=== PATIENT | female | born 1995 | race Caucasian/White ===

== ENCOUNTER → 2024-03-05 09:25 | Outpatient (REF) | payer BC, SELFPAY | LOC: UCDH 09:25 | PROVIDERS: ATTENDING PHYSICIAN Physician Assistant Medical; FAMILY PHYSICIAN Physician Assistant Medical | DX: S99.922A Unspecified injury of left foot, initial encounter (principal) | CPT/HCPCS: 73630 ==

== ENCOUNTER 2024-04-08 21:37 | Inpatient (IN) | payer BC, SELFPAY ==
[2024-04-08 18:19] VITALS: BP 146/86
[2024-04-08 18:30] LABS: Glucose - Point of Care 268 mg/dl (70-99)
--- NOTE | 2024-04-08 18:39 | ED.GENMED ---
History of Present Illness
General
Chief Complaint: Abdominal Symptoms
Source: patient
Time Seen by Provider: 04/08/24 18:31
History of Present Illness
History of Present Illness:
28yoF with a history of type 1 diabetes with insulin pump in place and hypothyroidism presenting with her for evaluation of vomiting. Symptoms began around 2am this morning. She reports vomiting every 20 minutes since then. She has been
unable to tolerate PO intake since her symptoms began. She also reports diarrhea. Several of her coworkers are currently sick with a GI illness. Her urine ketones were high and she started to have heavy breathing this evening which prompted her to
come to the ED for concern for possible DKA. Glucose has been in the 250s today.
Phy Exam
General Physical Exam
General Presentation: mild distress
General age: appears stated age
General Skin: warm and dry
General Habitus: normal
ENT Exam
ENT Exam: normocephalic
Cardiovascular Exam
Cardiovascular Exam: no murmur and tachycardia
Pulmonary Exam
Pulmonary Exam: lungs clear, no respiratory distress, no rales, no crackles and no rhonchi
Gastrointestinal Exam
Gastrointestinal Exam: non tender, soft and non distended
Neurological Exam
Neurological Exam: alert
Toro Coma Scale
Eye Opening: Spontaneous
Verbal Response: Oriented
Motor Response: Obeys Commands
GCS Total Score: 15
Skin Exam
Skin Exam: normal color and warm/dry
Psychiatric Exam
Psychiatric Exam: normal mood/affect
Course
Orders/Labs/Results
Orders:
Orders
04/08/24 18:25
Test Result ONCE
04/08/24 18:34
Ondansetron Injectable [Zofran] 4 mg .ROUTE .STK-MED ONE
04/08/24 18:38
Electrocardiogram (*1) Urgent
Reason for Study: Shortness of Breath
EKG- Treatment ONCE
0.9% Sodium Chloride 1000 ml [Nss] 1,000 ml IV BOLUS
Ondansetron Injectable [Zofran] 4 mg IV NOW STA
04/08/24 18:50
B-Hydroxybutyrate Urgent
Basic Metabolic Panel Urgent
Comment: BMP NO K
Complete Blood Count/With Diff Urgent
HCG, Serum Qualitative Screen Urgent
Lipase Urgent
Venous Blood Gas Urgent
%Oxygen/Room Air: room air
04/08/24 19:25
0.9% Sodium Chloride 1000 ml [Nss] 1,000 ml IV BOLUS
04/08/24 20:01
Dphrq-Lkbf-Gftgnjr Urgent
Magnesium Urgent
Potassium Urgent
04/08/24 20:41
Bedside Glucose- Treatment Q1H
IV Insert/Care/Rem.- Treatment PRN
Magnesium Sulfate 2 Gram/50 ml [Magnesium Sulfate] 2 gram in 50 ml IV NOW
Reg Insulin 100 Units/100 ml [Novolin R Insulin Infusion] 100 units in 100 ml IV NOW
04/08/24 20:42
Ondansetron Injectable [Zofran] 4 mg .ROUTE .STK-MED ONE
04/08/24 20:45
Basic Metabolic Panel Q2H
04/08/24 20:48
Ondansetron Injectable [Zofran] 4 mg IV NOW STA
04/08/24 20:51
Urinalysis Reflex To Culture Urgent
Date Specimen was Collected: 04/08/24
Time Specimen was Collected: 20:36
04/08/24 21:00
KCl 20 Meq/0.9%Sodchl 1000 ml [NSS with KCL 20 MEQ] 20 meq in 1,000 ml IV 250 mls/hr
04/08/24 21:03
Admit/Transfer Patient As Directed
Co-Sign Provider:
Level of Care: Inpatient admission
Assign to:: ICU
Physician / Group: lyly ordaz
Diagnosis: DKA
Reason for Hospitalization: DKA
Expected length of stay greater than two midnights?: Yes
ELOS- Estimated Length of Stay in days: 3
I certify the patient meets the requirements for IP care: Yes
PRN Pain Medication Management As Directed
May give lesser potent ordered pain med per pt: Yes
preference::
Protocol:: Medication orders for pain may be administered in a
manner that supports deferring to patient preference
when the pt is:
- Requesting an ordered lesser potent pain medication.
Least to most potent pain medications are defined
as: acetaminophen < NSAID < tramadol < opioids
(morphine, oxycodone, hydromorphone).
- Requesting a lesser dose of the same medication IF
ORDERED.
- Requesting a less intrusive route of administration
if both routes are prescribed by the provider (PO <
IV).
04/08/24 21:04
Code Status As Directed
Resuscitation Status: Full Code
04/08/24 22:45
Basic Metabolic Panel Q2H
04/09/24 00:45
Basic Metabolic Panel Q2H
Abnormal Lab Results
04/08/24 04/08/24 04/08/24
18:28 18:50 20:01
MPV 11.8 H fL
(7.4-10.4)
Absolute Lymphs (auto) 0.2 L 10^3/uL
(1.2-3.4)
Neutrophils % 92.0 H %
(42.2-75.2)
Lymphocytes % 4.1 L %
(20.5-51.1)
VBG pCO2 28 L mmHg
(35-48)
VBG pO2 120 H mmHg
(30-50)
VBG HCO3 17.7 L mmol/L
(22-27)
Sodium 131 L mmol/L
(135-145)
Carbon Dioxide 16 L mmol/L
(22-30)
Glucose 297 H mg/dl
(70-99)
Magnesium 1.5 L mg/dl
(1.6-2.3)
Urine Ketones
Urine Glucose
B-Hydroxybutyrate 3.12 H mmol/L
(0.02-0.27)
POC Glucose 268 H mg/dl
(70-99)
04/08/24
20:51
MPV
Absolute Lymphs (auto)
Neutrophils %
Lymphocytes %
VBG pCO2
VBG pO2
VBG HCO3
Sodium
Carbon Dioxide
Glucose
Magnesium
Urine Ketones 3+ A
(Negative)
Urine Glucose 3+ A
(Negative)
B-Hydroxybutyrate
POC Glucose
04/08/24 18:50
Vital Signs
Initial and Last Documented VS:
Initial Vital Signs
Temp Pulse Resp BP Pulse Ox
98.1 F 122 18 146/86 98
04/08/24 18:19 04/08/24 18:19 04/08/24 18:19 04/08/24 18:19 04/08/24 18:19
Last Documented Vital Signs
Temp Pulse Resp BP Pulse Ox
98.1 F 122 18 146/86 98
04/08/24 18:19 04/08/24 18:19 04/08/24 18:19 04/08/24 18:19 04/08/24 18:19
MDM/Problems Addressed
Differential Diagnosis Includes:
28yoF here with vomiting since 2am. Unable to tolerate PO intake. Hx of T1DM. Urine ketones high at home. She is tachycardic to 122. Remainder of vitals stable. She is in mild distress on exam. Differential diagnosis includes but is not limited to:
DKA, HHS, dehydration, BEN, electrolyte abnormality, gastroenteritis
Initial ED plan: Check abdominal labs, magnesium, beta hydroxybutyrate, VBG, HCG, UA, and EKG. IV Zofran and fluid bolus for symptoms.
Acute Exacerbation and/or Progression of Chronic Illness: DM
*EKG
Interpreted by ED Provider?: Yes
EKG Intrepretation Date: 04/08/24
Heart Rate: 91
Rate: normal
Rhythm: sinus
Waldo: normal axis
Interval: normal interval
QRS Pattern: normal QRS
Ischemia: no ischemia
*Critical Care Note
Total Time (30-74mins, 75-104mins- exclusive of procedures): 35
Update Note
Update Note:
Glucose 297. Bicarb 16, venous pH normal. Serum and urine ketones positive. Magnesium 1.5, remainder of electrolytes normal. 2nd L of NS ordered. Insulin gtt ordered per DKA protocol. She was admitted for further evaluation and management.
ED Attending Note
-
Portions of this chart may have been created with voice recognition software.� Occasional wrong word or��sound alike� substitutions may have occurred due to the inherent limitations of voice recognition software.
Discharge Plan
Departure
Patient Disposition: Admit
Date of Disposition: 04/08/24
Time of Disposition: 20:44
Presentation/result/management discussed w/ accepting MD/DO: Hospitalist
Discharge Problem:
DKA (diabetic ketoacidosis)
Prescriptions:
No Action
levothyroxine [Synthroid] 125 mcg Tablet
125 mcg PO DAILY
(DME) insulin pump cart,10 units/day
Referrals:
Nanci Danielle PA [Family Provider] -
Interventions
Interventions:
*Risk Screen - Suicide Last Done: 04/08/24 18:19
*General Assessment Last Done: 04/08/24 18:19
*Neglect/Abuse Screening Last Done: 04/08/24 18:19
*ED COVID-19 Vaccine History Last Done: 04/08/24 18:59
NH-Ygpxip-Qiiitsvdkt Assessment Last Done: 04/08/24 18:59
Discharge Date and Time
Print Language: MOHAWK
[2024-04-08] MEDS: NSS 1000 IV ×2 (18:53→20:47)
[2024-04-08] MEDS: ZOFRAN 4 MG IV ×2 (18:54→20:48)
[2024-04-08 18:56] LABS: % Basophils 0.5 % (0-2); % Immature Granulocytes 0.2 % (0-0.5); % Lymphocytes 4.1 % (20.5-51.1); % Monocytes 3.2 % (1.7-9.3); Absolute Lymphocytes 0.2 10^3/uL (1.2-3.4); Absolute Monocytes 0.2 10^3/uL (0.1-0.6); Absolute Neutrophils 5.1 10^3/uL (1.4-6.5); Hematocrit 44.1 % (37.0-47.0); Hemoglobin 14.7 g/dL (12.0-16.0); Mean Corp Hgb Conc. 33.3 g/dL (33.0-37.0); Mean Corpuscular Hgb 28.8 pg (27.0-31.0); Mean Corpuscular Volume 86.3 fL (81.0-99.0); Mean Platelet Volume 11.8 fL (7.4-10.4); Nucleated Red Blood Cells % 0 %; Platelet Count 186 10^3/uL (130-400); Red Blood Cell Count 5.11 10^6/uL (4.20-5.40); Red Cell Dist. Width 12.2 % (11.5-14.5); Venous Blood Gas B.E. -5.3 mmol/L (-4 to +4); Venous Blood Gas HCO3 17.7 mmol/L (22-27); Venous Blood Gas O2 Sat % 99.9 %; Venous Blood Gas pCO2 28 mmHg (35-48); Venous Blood Gas pH 7.41 (7.32-7.43); Venous Blood Gas pO2 120 mmHg (30-50); White Blood Cell Count 5.6 10^3/uL (4.8-10.8)
[2024-04-08 18:58] VITALS: BP 119/63; BMI 29.1
[2024-04-08 19:14] LABS: HCG, Serum Qualitative Screen Negative
[2024-04-08 19:21] LABS: Blood Urea Nitrogen 13 mg/dl (7-17); Calcium 9.2 mg/dl (8.4-10.2); Carbon Dioxide 16 mmol/L (22-30); Chloride 99 mmol/L (98-107); Estimated Creatinine Clearance > 125 ml/min; Glucose 297 mg/dl (70-99); Lipase 27 U/L (23-300); Sodium 131 mmol/L (135-145); eGFR > 60.00
[2024-04-08 19:32] LABS: B-Hydroxybutyrate 3.12 mmol/L (0.02-0.27)
[2024-04-08 20:00] VITALS: BP 118/68
[2024-04-08 20:37] LABS: ALT (SGPT) 22 U/L (0-35); AST (SGOT) 22 U/L (14-36); Albumin 4.1 g/dl (3.5-5.0); Alkaline Phosphatase 60 U/L (38-126); Direct Bilirubin 0.2 mg/dl (0.0-0.4); Magnesium 1.5 mg/dl (1.6-2.3); Potassium 4.5 mmol/L (3.5-5.1); Total Bilirubin 0.8 mg/dl (0.2-1.3); Total Protein 6.3 g/dl (6.3-8.2)
--- NOTE | 2024-04-08 20:51 | HPS.HSE ---
Family Physician
-
Family Physician: Nanci Danielle
Chief Complaint
-
nausea and vomiting
History of Present Illness
28yoF with a history of type 1 diabetes with insulin pump in place and hypothyroidism presenting with her for evaluation of vomiting. Symptoms began around 2am this morning. She reports vomiting every 20 minutes since then. She has been
unable to tolerate PO intake since her symptoms began. She also reports diarrhea. Several of her coworkers are currently sick with a GI illness. Her urine ketones were high and she started to have heavy breathing this evening which prompted her to
come to the ED for concern for possible DKA. Glucose has been in the 300's. she did not give her insulin at home, she was afraid that she will drop her glucose as she was not eating. denied fever, chills, chest pain, sob. denied CONTRERAS, dizzy or
syncope. denied abdominal pain. denied dysuria or hematuria.
noted in DKA. initiated on insulin drip and normal saline. admitting for further management.
Medical History
Past Medical History
Past Medical History: Reports Other
Additional Past Medical History:
Type 1 diabetes
Past Surgical History: Reports Other
Additional Past Surgical History:
[place] tooth extraction
Social History
Tobacco: Non-smoker
Alcohol: Occasional
Drug: Marijuana
Personal:
Living: With Family
Family History
Family History: Not pertinent
Allergies / Home Medications
Allergies reflects when Allergies were last updated in [employer].
Home Medications with original date entered in [employer]
Allergy/Medication List:
Allergies
Allergy/AdvReac Type Severity Reaction Status Date / Time
clindamycin Allergy Hives Verified 04/08/24 18:24
Penicillins Allergy Hives Verified 04/08/24 18:24
Review of Systems
-
Constitutional: Reports No Symptoms
EENT: Reports No Symptoms
Respiratory: Reports No Symptoms
Cardiac: Reports No Symptoms
Abdomen/GI: Reports Nausea and Vomiting
: Reports No Symptoms
Musculoskeletal: Reports No Symptoms
Skin: Reports No Symptoms
Neurological: Reports No Symptoms
Endocrine: Reports No Symptoms
Hematologic/Lymphatic: Reports No Symptoms
Psych: Reports No Symptoms
Physical Exam
Vital Signs
Vital Signs
Temp Pulse Resp BP Pulse Ox
98.1 F 122 18 146/86 98
04/08/24 18:19 04/08/24 18:19 04/08/24 18:19 04/08/24 18:19 04/08/24 18:19
Physical Exam
General: Well Developed, Well Nourished and No Apparent Distress
HEENT: NormoCephalic, Moist mucous membranes and Atraumatic
Respiratory: Clear
Cardiac: S1/S2 and Regular Rhythm; No Murmur or Rub
GI: Soft, Non Tender, Non Distended and Normal Bowel Sounds; No Organomegaly
Rectal: Deferred by Provider
Musculoskeletal: No Clubbing, No Cyanosis and No Edema
Skin: No Rash
Neuro: AO x 3 and Nonfocal/grossly intact
Psych: Calm
Laboratory Results
-
04/08/24 18:50
Laboratory Results
Total Bilirubin 0.8 mg/dl (0.2-1.3) 04/08/24 20:01
AST 22 U/L (14-36) 04/08/24 20:01
ALT 22 U/L (0-35) 04/08/24 20:01
Alkaline Phosphatase 60 U/L (38-126) 04/08/24 20:01
Lipase 27 U/L (23-300) 04/08/24 18:50
Data Reviewed
-
Lab Data: Labs Reviewed by me
Impression/Plan
-
# DKA
# History of type 1 diabetes
-Insulin drip continued
-Normal saline continued
-Accu-Chek and BMP every 2 hours
-diabetic TACO MAKER consulted.
#hypothyroidism
-Synthroid continued
#DVT prophylaxis
-scd
#CODE status
-full code
[2024-04-08 20:59] LABS: Urine Albumin Trace (Neg - Trace); Urine Bilirubin Negative (Negative); Urine Character Clear (Clear); Urine Color Yellow; Urine Glucose 3+ (Negative); Urine Ketone 3+ (Negative); Urine Leukocyte Negative (Negative); Urine Nitrite Negative (Negative); Urine Occult Blood Negative (Negative); Urine Specific Gravity 1.025 (<1.030); Urine Urobilinogen Negative (Neg - 1+)
--- NOTE | 2024-04-08 21:10 | W.PN.UPDATE ---
Update Note
Progress Note Update
This note serves as an addendum to the H&P by knife sharpener BRITTANY Nubia OLEA
HPI
28F HX T1DM on insulin pump, hypothyroidism seen at ER;
- pw for for evaluation of vomiting began around 2am this morning
- vomiting every 20 minutes since then
- unable to tolerate PO intake since her symptoms began.plus diarrhea.
- Several of her coworkers are currently sick with a GI illness.
- have heavy breathing this evening which prompted her to come to the ED for concern for possible DKA.
-BGs 250s today.
PHX; see above
Vital Signs
Temp Pulse Resp BP Pulse Ox
98.1 F 122 18 146/86 98
04/08/24 18:19 04/08/24 18:19 04/08/24 18:19 04/08/24 18:19 04/08/24 18:19
PE
Gen: not toxic looking
HEENT: anicteric
Neck: supple
Lungs: CTA
Cor: RRR S1 S2
Abdomen: soft benign abdomen
CLINICAL REVIEW NURSE: AAO3, NFND
MS: no edema
Psych: appropriate
Data
Unremarkable CBC
Na 131
K 4.5
CO2 16
eGFR > 60
BHB 3.1
Hi AG MA@ 16
BG 297
EKG
NORMAL SINUS RHYTHM
NORMAL ECG
NO PREVIOUS ECGS AVAILABLE
ASSESSMENT & PLAN
DKA
Metabolic acidosis ( Hi AG MA due to DKA + NAG MA due to diarrheal loss )
Significant POS BHB
Hyperglycemia
Contracted volume
- HX DKA
- q2h BMP
- Insulin gtt and IVF resuscitation per DKA protocol
- Hold insulin pump
- IV Zofran PRN
- ADAT
- DM BLOWING ENGINEER consult for insulin management
Acute N/V/D precipitated by GI virus plus element of DKA
POS sick contact exposure to GI virus at work
- check Noro virus
- IVF
HX Hypothyroid
- cont. LT4
DVT Px: SCD
Full code
ICU
Total Critical Care Time__50___ minutes.
I was immediately available to the patient and staff. I personally examined, reviewed labs, diagnostic images/reports, interpretations, treatment plans, discussed patient care with other providers and family or caregivers (if patient is unable to
make decisions), entered orders as appropriate and documented the medical record.
[2024-04-08] MEDS: NSS with KCL 20 MEQ 1000 IV (21:25)
[2024-04-08] MEDS: NOVOLIN R INSULIN INFUSION 100 IV (21:29)
[2024-04-08 21:32] LABS: Glucose - Point of Care 231 mg/dl (70-99)
[2024-04-08] MEDS: MAGNESIUM SULFATE 50 IV (21:38)
[2024-04-08 22:10] VITALS: BP 124/64
[2024-04-08 22:13] LABS: Glucose - Point of Care 195 mg/dl (70-99)
[2024-04-08 22:27] VITALS: BP 104/58
[2024-04-08 23:00] VITALS: BP 107/70
--- NOTE | 2024-04-08 23:00 | PTCARENOTE ---
pt to ICU from ER, aaox3, pleasant, SR HR 90s, RA Sat 98%, B/L IV WNL- insulin gtt/IVF infusing as documented. POC discussed w/pt.
[2024-04-08 23:06] LABS: Glucose - Point of Care 146 mg/dl (70-99)
[2024-04-08] MEDS: D5/0.45%NSS with KCL 20 MEQ 1000 IV (23:28)
[2024-04-09] VITALS (13 sets, daily range): BP systolic 92–132; BP diastolic 33–68; BMI 27.7
[2024-04-09 00:03] LABS: Blood Urea Nitrogen 12 mg/dl (7-17); Calcium 8.1 mg/dl (8.4-10.2); Carbon Dioxide 21 mmol/L (22-30); Chloride 104 mmol/L (98-107); Estimated Creatinine Clearance > 125 ml/min; Glucose 158 mg/dl (70-99); Potassium 4.1 mmol/L (3.5-5.1); Sodium 132 mmol/L (135-145); eGFR > 60.00
[2024-04-09 00:17] LABS: Glucose - Point of Care 178 mg/dl (70-99)
[2024-04-09 01:19] LABS: Glucose - Point of Care 196 mg/dl (70-99)
[2024-04-09 02:28] LABS: Glucose - Point of Care 204 mg/dl (70-99)
[2024-04-09 03:36] LABS: Glucose - Point of Care 241 mg/dl (70-99)
[2024-04-09 04:26] LABS: Glucose - Point of Care 209 mg/dl (70-99)
--- NOTE | 2024-04-09 04:30 | PTCARENOTE ---
Reassessed, pt reports feeling much better, assisted to bathroom; no NVD noted since arrival to ICU. no further changes.
[2024-04-09 04:42] LABS: INR 1.16; PT 15.1 Sec (11.4-14.6)
[2024-04-09 04:43] LABS: APTT 29.8 Sec (23.4-35.0)
[2024-04-09 05:09] LABS: Blood Urea Nitrogen 9 mg/dl (7-17); Calcium 8.1 mg/dl (8.4-10.2); Carbon Dioxide 21 mmol/L (22-30); Chloride 104 mmol/L (98-107); Estimated Creatinine Clearance > 125 ml/min; Glucose 224 mg/dl (70-99); Potassium 4.3 mmol/L (3.5-5.1); Sodium 133 mmol/L (135-145); eGFR > 60.00
[2024-04-09 05:26] LABS: Glucose - Point of Care 194 mg/dl (70-99)
[2024-04-09] MEDS: D5/0.45%NSS with KCL 20 MEQ 1000 IV (06:09)
[2024-04-09 06:24] LABS: Glucose - Point of Care 210 mg/dl (70-99)
--- NOTE | 2024-04-09 07:10 | PTCARENOTE ---
Received pt with Insulin drip and IVF. She is awake and alert. Has a great understanding of her diabetes and management. Lungs CTA, +BSx4. Tolerating small sips of water. Ambulating in the room. at the bedside. Informed her of the plan of
care regarding advancing her diet, and transitioning her off of her insulin drip. She verbalized her understanding. Safe environment maintained. Supportive care given.
[2024-04-09 07:21] LABS: Glucose - Point of Care 237 mg/dl (70-99)
[2024-04-09 07:53] LABS: Magnesium 2.1 mg/dl (1.6-2.3)
[2024-04-09 08:20] LABS: Glucose - Point of Care 212 mg/dl (70-99)
[2024-04-09 09:23] LABS: Glucose - Point of Care 164 mg/dl (70-99)
[2024-04-09 09:30] LABS: Blood Urea Nitrogen 8 mg/dl (7-17); Carbon Dioxide 23 mmol/L (22-30); Chloride 104 mmol/L (98-107); Estimated Creatinine Clearance > 125 ml/min; Glucose 220 mg/dl (70-99); Potassium 4.4 mmol/L (3.5-5.1); Sodium 133 mmol/L (135-145); eGFR > 60.00
--- NOTE | 2024-04-09 10:07 | PTCARENOTE ---
Discussed the plan of care with Dr. Meléndez and Dr. Gonzalez.
[2024-04-09 10:19] LABS: Glucose - Point of Care 144 mg/dl (70-99)
--- NOTE | 2024-04-09 10:41 | CM ---
CM following re: discharge planning.
Discussed in Rounds, reviewed pt's chart, met with pt and pt's at bedside.
Pt is a 28 year old female, admitted with primary dx of DKA.
Pt reports she lives with in a 2SH, 1 step to enter, has no children, has insulin pump. Pt described herself as independent in all areas [employer], drives, works.
According to pt probably will be discharge home today. Pt is aware and stated he will transport his spouse home.
PCP: Nanci Danielle
Pharmacy: [facility]
D/C plan: home no needs. to transport
[2024-04-09 11:19] LABS: Glucose - Point of Care 167 mg/dl (70-99)
--- NOTE | 2024-04-09 11:29 | PTCARENOTE ---
Pt instructed to restart insulin pump. IVF and insulin gtt off. Pt ordering diet and instructed to notify RN when meal arrives for preprandial BG.
--- NOTE | 2024-04-09 11:34 | CON.INTV ---
Consultation
Consultation Request
Date/Time Consultation Requested: 04/09/2024
Date/Time Consultation Performed: 04/09/2024
Requesting Provider: Dr. Meléndez
Performing Provider: Dr. Sherman Kim
Reason for Consultation: Diabetes ketoacidosis
Medical History
-
History of Present Illness:
28-year-old with history of type 1 diabetes on insulin pump, hypothyroidism who presented to the emergency room complaining of vomiting. 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 Multiple episode of vomiting, unable to tolerate orals. Also reports
watery diarrhea. She has sick contacts at work multiple workers with GI illness.
Laboratory testing consistent with diabetes ketoacidosis, metabolic acidosis, possible ketones.
Patient has an insulin pump.
This morning improved, anion gap has closed.
No further vomiting.
Diarrhea has lessened.
Denies abdominal pain.
Past Medical History
Past Medical History: Other (As in HPI)
Social History
Tobacco: Non-smoker
Alcohol: Occasional
Drug: Marijuana
Personal:
Living: With Family
Family History
Family History: Reviewed & Not Pertinent
Allergies / Home Medications
Allergies
Allergy/AdvReac Type Severity Reaction Status Date / Time
clindamycin Allergy Hives Verified 04/08/24 18:24
Penicillins Allergy Hives Verified 04/08/24 18:24
Home Medications
�Medication �Instructions �Recorded �Confirmed �Last Taken �Type
insulin pump cart,10 units/day 04/08/24 04/08/24 Unknown History
levothyroxine 125 mcg tablet 125 mcg PO DAILY Thyroid 04/08/24 04/08/24 Unknown History
(Synthroid)
Review of Systems
-
History Source: Patient
All other systems: Negative unless noted
Vitals / Labs / Diagnostic Testing
Vital Signs
Temp Pulse Resp BP Pulse Ox
98.4 F 91 18 118/68 98
04/09/24 07:10 04/09/24 10:00 04/09/24 10:00 04/09/24 10:00 04/09/24 10:00
Lab Data
04/08/24 18:50
Laboratory Results
04/09/24
04:14
PT 15.1 H
INR 1.16
APTT 29.8
Diagnostic Testing:
Physical Exam
-
HEENT: Normocephalic
Cardiovascular: S1/S2
Respiratory: Non-Labored Respirations
GI: Soft and Non Distended
Neurology: Awake, Alert, Oriented and No Motor Deficits
Skin: Warm
General: Comfortable
Assessment
-
Diabetes ketoacidosis-triggered by viral gastroenteritis
Conditions present prior admission:
Hypothyroidism
Type 1 diabetes on an insulin pump
Assessment and plan:
Diabetes ketoacidosis likely triggered by viral gastroenteritis.
Abdominal exam is benign
No further vomiting
Tolerating liquids.
-
Overnight remained on insulin drip, this morning clinically improved.
Anion gap has closed
No further vomiting.
Electrolytes mostly balanced
Discontinue IV fluids
Advance diet
-
Discussed with diabetes nurse practitioner, insulin pump will be restarted
Diabetic diet-
If able to tolerate hopefully discharge planning later today.
-
Discussed with primary team.
No additional critical care needs.
If patient not discharged downgrade to medical surgery
Sign off
[2024-04-09] MEDS: PT'S OWN INSULIN PUMP - NovoLOG 1.5 UNIT SC (11:50)
[2024-04-09 12:02] LABS: Glucose - Point of Care 189 mg/dl (70-99)
--- NOTE | 2024-04-09 12:56 | PN.DE.MGMTRT ---
Insulin Management
- -
04/09/2024 Diabetes Management Consult
Patient admitted 04/08 with vomiting. PMH type 1 diabetes since 2006 on an insulin pump, hypothyroidism. A1C on admission 12, cr .5, eGFR >60. GAP on admission 16, now closed, 8 times 2.
Currently on insulin infusion @ 1.5 to 3 units per hour. Will transition back to insulin pump, then insulin infusion off one hour later. Patient may then order lunch and bolus per pump.
Patient is awake alert and oriented able to discuss diabetes management, at bedside. I did discuss with patient importance of changing infusion set if glucose is elevated and correction bolus does not reduce glucose within 1 hour. She was
not aware of this.Patient sees Dr. Mendiola, endocrine for ongoing diabetes care.
Currently using [employer]end[employer] 780 G insulin pump wit 6mm or 9mm Quick Sets with Novolog insulin. Pump settings as follows:
Basal I:CHO ratio Correction
12am .8 10 80
3am .8 10 80
6am 1.05 10 80
24 hour basal insulin 23.7 units.
Target range 130 to 140 (fear of hypoglycemia)
Active insulin 3 hours.
Patient has obtained new supplies and inserted infusion set without difficulty. Insulin infusion off in 1 hour and patient may order lunch. If no further vomiting patient may be discharged from diabetes perspective.
Diabetes History
- -
Type of Diabetes: 1
Pre-Admission Diabetes Regimen
04/08/24 04/08/24 04/08/24
18:50 20:45 22:45
Creatinine 0.6 Cancelled Cancelled
04/08/24 04/08/24 04/09/24
22:50 23:30 02:02
Creatinine Cancelled 0.6 Cancelled
04/09/24 04/09/24
04:14 08:08
Creatinine 0.5 L 0.5 L
Lab Results
Hemoglobin A1c 12.0 % (4.0-5.6) H 04/09/24 04:14
Insulin Pump Settings
IP Diabetes Regimen
04/08/24 04/08/24 04/08/24
18:28 18:50 20:45
Glucose 297 H Cancelled
POC Glucose 268 H
04/08/24 04/08/24 04/08/24
21:30 22:11 22:45
Glucose Cancelled
POC Glucose 231 H 195 H
04/08/24 04/08/24 04/08/24
22:50 22:54 23:30
Glucose Cancelled 158 H
POC Glucose 146 H
04/09/24 04/09/24 04/09/24
00:06 01:08 02:02
Glucose Cancelled
POC Glucose 178 H 196 H
04/09/24 04/09/24 04/09/24
02:17 03:24 04:14
Glucose 224 H
POC Glucose 204 H 241 H
04/09/24 04/09/24 04/09/24
04:15 05:15 06:12
Glucose
POC Glucose 209 H 194 H 210 H
04/09/24 04/09/24 04/09/24
07:09 08:08 08:09
Glucose 220 H
POC Glucose 237 H 212 H
04/09/24 04/09/24 04/09/24
09:10 10:07 11:03
Glucose
POC Glucose 164 H 144 H 167 H
04/09/24
11:49
Glucose
POC Glucose 189 H
Patient Education
--- NOTE | 2024-04-09 13:08 | W.PN.HOSP.TC ---
Addendum entered and electronically signed by Bello Meléndez MD 04/09/24 13:51:
Seen and examined by me independently in collaboration with the medical delivery driver.
Lab data and imaging data reviewed.
Addendum as below :
Patient with type 1 diabetes mellitus on insulin pump and CGM presents with acute GI symptoms predominantly of nausea,multiple episodes of emesis and also some diarrhea.
Noted to be in DKA predominantly due to increased anion gap and accumulation of ketoacidosis. pH is okay. Not significant and metabolic acidosis presumably because of concurrent metabolic alkalosis from upper GI losses in the form of vomiting.
Patient was put on IV insulin with improvement of blood sugars, closure of anion gap. Also her GI symptoms are much improved.
According to the history there seems to be a GI illness outbreak at work and there apparently cases of norovirus at work. Currently she has much improved GI symptoms and no diarrhea.
With resolution of DKA and improvement of GI symptoms we will switch her back to her subcutaneous insulin pump. if she tolerates a diet and blood sugars remain uncontrolled we will discharge her back home.
Went over the poor glycemic control at home. Her hemoglobin A1c is 12. She says her most recent hemoglobin A1c was 9 , things have been difficultly for her in general and also she had 2 low blood sugars and so she went down on insulin dosage. She
follows with a local woodworking machine setter for management of diabetes. Advised her to return back to her woodworking machine setter for more aggressive management of her diabetes mellitus.
Total time of dc 32 min
Original Note:
Today's Communication/Plan
-
Transition back to insulin pump
Discharge home today
Follow-up with endocrinology outpatient for diabetes management
Assessment / Plan
Assessment / Plan
28-year-old with history of type 1 diabetes on insulin pump, hypothyroidism who presented to the emergency room complaining of vomiting
#Diabetes ketoacidosis- likely triggered by viral gastroenteritis
Abdominal exam is benign
Tolerating liquids.
HbA1c 12.0
Overnight remained on insulin drip, this morning clinically improved.
Anion gap has closed
No further vomiting.
Electrolytes mostly balanced
Discontinue IV fluids
Advance diet
Diabetic nurse helped with transition back to insulin pump
Will follow her outpatient with Dr. Mendiola, endocrine for ongoing diabetes care.
If able to tolerate hopefully discharge planning later today.
# Hypothyroidism
-Continue levothyroxine
Full code
Anticipated Discharge: Today
Subjective/Interval History
-
Date of Service: April 09, 2024
Feeling much better.
AFVSS
Objective Data
-
Labs:
Laboratory Results
04/09/24 04/09/24 04/09/24
02:02 04:14 08:08
PT 15.1 H
INR 1.16
APTT 29.8
Sodium Cancelled 133 L 133 L
Potassium Cancelled 4.3 4.4
Chloride Cancelled 104 104
Carbon Dioxide Cancelled 21 L 23
BUN Cancelled 9 8
Creatinine Cancelled 0.5 L 0.5 L
Glucose Cancelled 224 H 220 H
Calcium Cancelled 8.1 L 8.0 L
Vital Signs:
Vital Signs
Temp Pulse Resp BP Pulse Ox
98.4 F 91 18 118/68 98
04/09/24 07:10 04/09/24 10:00 04/09/24 10:00 04/09/24 10:00 04/09/24 10:00
I&O
04/08/24 04/09/24 04/10/24
06:59 06:59 06:59
Intake Total 1319 / 1472 759 / 759
Balance 1319 / 1472 759 / 759
Review of Systems
-
History Source: Patient
All other systems: Reviewed and negative
Physical Exam
-
General: Well Developed, Well Nourished and No Apparent Distress
HEENT: Normocephalic
Respiratory: Clear to Auscultation
Cardiac: Regular Rhythm
GI: Soft and Nontender
Skin: Warm and Dry
Neuro: Awake, Alert and Oriented
Psych: Calm
Data Reviewed
-
Diagnostic Radiology: Report Reviewed by me
Labs: Labs Reviewed by me, Discussed with Physician, Discussed with Patient and Discussed with Family
--- NOTE | 2024-04-09 13:21 | W.DCSUMMARY ---
Documented by User: Carlos Ibrahim MD, Resident 04/09/24 13:32
Discharge Summary
Discharge Data
Date of Admission: 04/08/24
Date of Discharge: 04/09/24
-
Pending Results: No
Hospital Course
Discharging Physician : Carlos Ibrahim MD ; Bello Meléndez MD
Disposition : Home
Primary care physician : Nanci Danielle
Principal Discharge diagnosis : Diabetes ketoacidosis-triggered by viral gastroenteritis
Chronic Discharge diagnosis : Hypothyroidism, type 1 diabetes mellitus
Hospital Course : 28-year-old with history of type 1 diabetes on insulin pump, hypothyroidism who presented to the emergency room complaining of vomiting. 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 Multiple episode of vomiting, unable to tolerate orals.
Also reported watery diarrhea. She had sick contacts at work multiple workers with GI illness. Laboratory testing was consistent with diabetes ketoacidosis, anion gap metabolic acidosis(urine analysis positive for ketones, BHB 3.12). Admitted to
ICU. She received 2 L of NSS bolus and was started on insulin drip and IV fluids(NSS with KCl and D5/0.45% NSS with KCl). She was given magnesium sulfate since blood work also showed low magnesium. IV Zofran for nausea. Home levothyroxine was
continued. Periodic labs were monitored and when the anion gap was closed patient was reassessed. Diabetic nurse was consulted and she was transitioned back to insulin pump. Hb A1c was found to be 12 and patient was advised to follow-up with the
chief nuclear medicine technologist for further recommendation and adjustment of the insulin pump. She was able to tolerate the diet. Patient was medically stable upon discharge. She agreed with the plan.
Important imaging findings :
CR Chest Portable:
FINDINGS: The lungs appear clear for portable AP technique. The cardiac silhouette, vascular markings, and mediastinal shadow appear normal.
IMPRESSION:
No evidence of active cardiopulmonary disease.
Procedures:
EKG: NORMAL SINUS RHYTHM
NORMAL ECG
Discharge Plan
-
Patient Disposition: Home (Routine Discharge)
Discharge Diagnosis/Procedures: Diabetes ketoacidosis likely triggered by viral gastroenteritis
Diet: Diabetic, Carb Controlled
Activity: No restrictions
Driving Restrictions: As prior to admission
Bathing Restrictions: None
Referrals:
Nanci Danielle PA [Family Provider] - in less than 1 week
Mick Mendiola MD [Consulting Staff] - in less than 1 week
Prescriptions:
Continued
levothyroxine [Synthroid] 125 mcg Tablet
125 mcg PO DAILY
(DME) insulin pump cart,10 units/day
Discharge Orders:
Discharge Patient (As Directed); Ordered 04/09/24
Ordered By: Carlos Ibrahim
Discharge Date and Time
Print Language: PRYDEINIG

Documented by User: Bello Meléndez MD 04/09/24 13:52
Discharge Summary
Discharge Data
Date of Admission: 04/08/24
Date of Discharge: 04/09/24
Discharge Plan
-
Patient Disposition: Home (Routine Discharge)
Discharge Diagnosis/Procedures: Diabetes ketoacidosis likely triggered by viral gastroenteritis
Diet: Diabetic, Carb Controlled
Activity: No restrictions
Driving Restrictions: As prior to admission
Bathing Restrictions: None
Referrals:
Nanci Danielle PA [Family Provider] - in less than 1 week
Mick Mendiola MD [Consulting Staff] - in less than 1 week
Prescriptions:
Continued
levothyroxine [Synthroid] 125 mcg Tablet
125 mcg PO DAILY
(DME) insulin pump cart,10 units/day
Discharge Orders:
Discharge Patient (As Directed); Ordered 04/09/24
Ordered By: Carlos Ibrahim
Discharge Date and Time
Print Language: PRYDEINIG
--- NOTE | 2024-04-09 14:07 | PTCARENOTE ---
IVs removed. Discharge instructions given and pt/ verbalized understanding. Pt escorted to car without issue.
== END 2024-04-09 14:26 | disposition home or self-care (01) | DRG 638 ==
LOC: ICU 21:37
PROVIDERS: Physician Assistant; Registered Nurse; Student in an Organized Health Care Education/Training Program; ADMITTING PHYSICIAN Internal Medicine; ATTENDING PHYSICIAN Internal Medicine; CONSULT PHYSICIAN Internal Medicine Critical Care Medicine; EMERGENCY PHYSICIAN Emergency Medicine; FAMILY PHYSICIAN Physician Assistant Medical
DX: E10.10 Type 1 diabetes mellitus with ketoacidosis without coma (principal); A08.11 Acute gastroenteropathy due to Norwalk agent; E03.9 Hypothyroidism, unspecified; Z96.41 Presence of insulin pump (external) (internal); Z79.890 Hormone replacement therapy; Z88.0 Allergy status to penicillin; Z88.1 Allergy status to other antibiotic agents
CPT/HCPCS: 71045; 80048; 80076; 81003; 82010; 82805; 82962; 83036; 83690; 83735; 84132; 84703; 85025; 85610; 85730; 93005; 96361; 96374; 96376; 99291